=== PATIENT | female | born 1995 | race Caucasian/White ===

== ENCOUNTER 2017-01-19 16:47 | Emergency (ER) | payer OTHER ==
[~2017-01-19 16:47] MED LIST: CIPR500T89 PO; FLAG500T PO; IBUP80TA PO; KEFL500C7 PO; PERC5TAB6 PO
[2017-01-19] MEDS ORDERED: METHOCARBAMOL 500 MG TAB As Ordered ONE (17:48)
[2017-01-19] MEDS ORDERED: ACETAMINOPHEN 325 MG TAB As Ordered ONE (17:49)
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
--- NOTE | 2017-01-19 18:36 | REP ---
Clinical: Deformity and swelling . Technique: AP, lateral, bilateral oblique views of the left elbow. Findings: No acute fracture or dislocation is appreciated. Joint spaces and surrounding soft tissues appear normal. Lateral view demonstrates normal positioning to the anterior and posterior fat pads without evidence for effusion/hemarthrosis. No subcutaneous emphysema or foreign body identified. Impression: Normal left elbow radiographs. Signed by Jonah Pierre MD 01/19/2017 06:28 P
--- NOTE | 2017-01-19 18:37 | REP ---
Clinical: Deformity and swelling . Technique: AP, lateral, bilateral oblique, and coned-down views. Findings: Alignment and lordosis is maintained. The vertebral bodies including transverse process and spinous processes are intact and normal. There is no evidence for acute fracture / compression injury or subluxation. No evidence for spondylolysis or spondylolisthesis. No significant degenerative change is noted. Impression: Normal lumbosacral spine radiograph series. Signed by Jonah Pierre MD 01/19/2017 06:28 P
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
--- NOTE | 2017-01-19 19:14 | EDDOCDS ---
Physician Documentation [facility] Name: Sharla Gonzales Age: 21 yrs Sex: Female : 1995 Arrival Date: 01/19/2017 Time: 16:47 Bed I6 / 28 Private MD: Disposition: 01/19/17 19:03 Discharged to Home/Self Care. Impression: Cervicalgia, Contusion of left elbow, Low back pain. - Condition is Stable. - Discharge Instructions: Back Pain, Adult, Elbow Contusion, Soft Tissue Injury of the Neck. - Prescriptions for Ibuprofen 600 mg Oral Tablet - take 1 tablet by ORAL route every 6 hours As needed take with food; 30 tablet. Robaxin 500 mg Oral Tablet - take 2 tablet by ORAL route every 6 hours As needed; 40 tablet. - Medication Reconciliation, Local Pharmacy Hours form. - Follow up: Private Physician; When: Tomorrow; Reason: Recheck today's complaints, Continuance of care. - Problem is new. - Symptoms have improved. Historical: - Allergies: No known drug Allergies; - Home Meds: 1. none - PMHx: Kidney stones; - PSHx: Lithotripsy; - Immunization history: Last tetanus immunization: unknown. - Social history: Smoking status: Patient states was never smoker of tobacco. No barriers to communication noted, The patient speaks fluent Polish. - Family history: Not pertinent. - Last oral intake was: 1615 today. - : The pt / caregiver states he / she is not on anticoagulants. Home medication list is obtained from the patient. - Exposure Risk Screening:: None identified. Vital Signs: 01/19 16:50 BP 148 / 83; Pulse 96; Resp 16; Temp 96.9; Pulse Ox 100% on R/A; Weight 66.68 kg / 147 lr2 lbs (R); Height 5 ft. 4 in. (162.56 cm) (R); Pain 2/10; 19:13 BP 128 / 78; Pulse 78; Resp 18; Temp 98(T); Pulse Ox 99% on R/A; Pain 0/10; rs3 16:50 Body Mass Index 25.23 (66.68 kg, 162.56 cm) lr2 Trauma Score (Adult): 17:04 Eye Response: spontaneous(1); Verbal Response: oriented(1); Motor Response: obeys ttb commands(2); Systolic BP: > 89 mm Hg(4); Respiratory Rate: 10 to 29 per min(4); Leeds Score: 15; Trauma Score: 12 MDM: 17:32 [facility] Payment Agreement was scanned into [employer] and attached to record. jp5 17:32 [facility] Payment Agreement was scanned into [employer] and attached to record. jp5 17:32 Financial registration complete. jp5 17:43 Acetaminophen Tablet 650 mg PO once ordered. ck7 17:43 Methocarbamol 1 grams PO once ordered. ck7 17:45 Spine. Lumbosacral, Complete Ordered. EDMS 17:45 Elbow, Complete Ordered. EDMS 17:45 CT Head Without Contrast Ordered. EDMS 17:45 CT Spine,Cervical W/o Contrast Ordered. EDMS 18:50 CT Head Without Contrast Reviewed. ck7 18:50 CT Spine,Cervical W/o Contrast Reviewed. ck7 18:50 Spine. Lumbosacral, Complete Reviewed. ck7 18:50 Elbow, Complete Reviewed. ck7 Administered Medications: 17:52 Drug: Acetaminophen 650 mg [acetaminophen 325 mg tablet (2 tabs)] Route: PO; dy 17:52 Drug: Methocarbamol 1 grams [methocarbamol 500 mg tablet (2 tabs)] Route: PO; dy Signatures: Dispatcher [employer] EDME Alise Gregg RN RN rs3 Rey Lopez, RPA-C RPA-Cck7 Dalia Velasquez RN RN ttJak Ramsay jp5 John Gonzalez RN The chart was reviewed and I authenticate all verbal orders and agree with the evaluation and treatment provided.Attachments: 17:32 [facility] Payment Agreement jp5 17:32 [facility] Payment Agreement jp5 MTDD
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
--- NOTE | 2017-01-21 20:14 | EDDOCDS ---
Physician Documentation [facility] Name: Sharla Gonzales Age: 21 yrs Sex: Female : 1995 Arrival Date: 01/19/2017 Time: 16:47 Bed I6 / 28 Private MD: Disposition: 01/19/17 19:03 Discharged to Home/Self Care. Impression: Cervicalgia, Contusion of left elbow, Low back pain. - Condition is Stable. - Discharge Instructions: Back Pain, Adult, Elbow Contusion, Soft Tissue Injury of the Neck. - Prescriptions for Ibuprofen 600 mg Oral Tablet - take 1 tablet by ORAL route every 6 hours As needed take with food; 30 tablet. Robaxin 500 mg Oral Tablet - take 2 tablet by ORAL route every 6 hours As needed; 40 tablet. - Medication Reconciliation, Local Pharmacy Hours form. - Follow up: Private Physician; When: Tomorrow; Reason: Recheck today's complaints, Continuance of care. - Problem is new. - Symptoms have improved. Historical: - Allergies: No known drug Allergies; - Home Meds: 1. none - PMHx: Kidney stones; - PSHx: Lithotripsy; - Immunization history: Last tetanus immunization: unknown. - Social history: Smoking status: Patient states was never smoker of tobacco. No barriers to communication noted, The patient speaks fluent Yakut. - Family history: Not pertinent. - Last oral intake was: 1615 today. - : The pt / caregiver states he / she is not on anticoagulants. Home medication list is obtained from the patient. - Exposure Risk Screening:: None identified. Vital Signs: 01/19 16:50 BP 148 / 83; Pulse 96; Resp 16; Temp 96.9; Pulse Ox 100% on R/A; Weight 66.68 kg / 147 lr2 lbs (R); Height 5 ft. 4 in. (162.56 cm) (R); Pain 2/10; 19:13 BP 128 / 78; Pulse 78; Resp 18; Temp 98(T); Pulse Ox 99% on R/A; Pain 0/10; rs3 16:50 Body Mass Index 25.23 (66.68 kg, 162.56 cm) lr2 Trauma Score (Adult): 17:04 Eye Response: spontaneous(1); Verbal Response: oriented(1); Motor Response: obeys ttb commands(2); Systolic BP: > 89 mm Hg(4); Respiratory Rate: 10 to 29 per min(4); Elba Score: 15; Trauma Score: 12 MDM: [facility] Payment Agreement was scanned into [employer] and attached to record. : [facility] Payment Agreement was scanned into [employer] and attached to record. 04 09: Financial registration complete. jp5 17:43 Acetaminophen Tablet 650 mg PO once ordered. ck7 17:43 Methocarbamol 1 grams PO once ordered. ck7 17:45 Spine. Lumbosacral, Complete Ordered. EDMS 17:45 Elbow, Complete Ordered. EDMS 17:45 CT Head Without Contrast Ordered. EDMS 17:45 CT Spine,Cervical W/o Contrast Ordered. EDMS 18:50 CT Head Without Contrast Reviewed. ck7 18:50 CT Spine,Cervical W/o Contrast Reviewed. ck7 18:50 Spine. Lumbosacral, Complete Reviewed. ck7 18:50 Elbow, Complete Reviewed. 01/20 09:34 T-Sheet-- Draft Copy was scanned into [employer] and attached to record. gb Administered Medications: 01/19 17:52 Drug: Acetaminophen 650 mg [acetaminophen 325 mg tablet (2 tabs)] Route: PO; dy 17:52 Drug: Methocarbamol 1 grams [methocarbamol 500 mg tablet (2 tabs)] Route: PO; dy Signatures: Dispatcher [employer] EDGA Cate Ching, Reg Reg gb Alise Gregg RN RN rs3 Rey Lopez, RPA-C RPA-Cck7 Dalia Velasquez RN RN ttb Price, Jennalee jp5 John Gonzalez RN The chart was reviewed and I authenticate all verbal orders and agree with the evaluation and treatment provided.Attachments: [facility] Payment Agreement [facility] Payment Agreement 01/20 09:34 T-Sheet-- Draft Copy gb Chart Complete MTDD
--- NOTE | 2017-01-21 20:14 | EDDOCDS ---
Physician Documentation [facility] Name: Sharla Gonzales Age: 21 yrs Sex: Female : 1995 Arrival Date: 01/19/2017 Time: 16:47 Bed I6 / 28 Private MD: Disposition: 01/19/17 19:03 Discharged to Home/Self Care. Impression: Cervicalgia, Contusion of left elbow, Low back pain. - Condition is Stable. - Discharge Instructions: Back Pain, Adult, Elbow Contusion, Soft Tissue Injury of the Neck. - Prescriptions for Ibuprofen 600 mg Oral Tablet - take 1 tablet by ORAL route every 6 hours As needed take with food; 30 tablet. Robaxin 500 mg Oral Tablet - take 2 tablet by ORAL route every 6 hours As needed; 40 tablet. - Medication Reconciliation, Local Pharmacy Hours form. - Follow up: Private Physician; When: Tomorrow; Reason: Recheck today's complaints, Continuance of care. - Problem is new. - Symptoms have improved. Historical: - Allergies: No known drug Allergies; - Home Meds: 1. none - PMHx: Kidney stones; - PSHx: Lithotripsy; - Immunization history: Last tetanus immunization: unknown. - Social history: Smoking status: Patient states was never smoker of tobacco. No barriers to communication noted, The patient speaks fluent Turkish. - Family history: Not pertinent. - Last oral intake was: 1615 today. - : The pt / caregiver states he / she is not on anticoagulants. Home medication list is obtained from the patient. - Exposure Risk Screening:: None identified. Vital Signs: 01/19 16:50 BP 148 / 83; Pulse 96; Resp 16; Temp 96.9; Pulse Ox 100% on R/A; Weight 66.68 kg / 147 lr2 lbs (R); Height 5 ft. 4 in. (162.56 cm) (R); Pain 2/10; 19:13 BP 128 / 78; Pulse 78; Resp 18; Temp 98(T); Pulse Ox 99% on R/A; Pain 0/10; rs3 16:50 Body Mass Index 25.23 (66.68 kg, 162.56 cm) lr2 Trauma Score (Adult): 17:04 Eye Response: spontaneous(1); Verbal Response: oriented(1); Motor Response: obeys ttb commands(2); Systolic BP: > 89 mm Hg(4); Respiratory Rate: 10 to 29 per min(4); Hanson Score: 15; Trauma Score: 12 MDM: [facility] Payment Agreement was scanned into [employer] and attached to record. : [facility] Payment Agreement was scanned into [employer] and attached to record. 04 09: Financial registration complete. jp5 17:43 Acetaminophen Tablet 650 mg PO once ordered. ck7 17:43 Methocarbamol 1 grams PO once ordered. ck7 17:45 Spine. Lumbosacral, Complete Ordered. EDMS 17:45 Elbow, Complete Ordered. EDMS 17:45 CT Head Without Contrast Ordered. EDMS 17:45 CT Spine,Cervical W/o Contrast Ordered. EDMS 18:50 CT Head Without Contrast Reviewed. ck7 18:50 CT Spine,Cervical W/o Contrast Reviewed. ck7 18:50 Spine. Lumbosacral, Complete Reviewed. ck7 18:50 Elbow, Complete Reviewed. 01/20 09:34 T-Sheet-- Draft Copy was scanned into [employer] and attached to record. gb Administered Medications: 01/19 17:52 Drug: Acetaminophen 650 mg [acetaminophen 325 mg tablet (2 tabs)] Route: PO; dy 17:52 Drug: Methocarbamol 1 grams [methocarbamol 500 mg tablet (2 tabs)] Route: PO; dy Signatures: Dispatcher [employer] EDID Cate Ching, Reg Reg gb Alise Gregg RN RN rs3 Rey Lopez, RPA-C RPA-Cck7 Dalia Velasquez RN RN ttb Price, Jennalee jp5 John Gonzalez RN The chart was reviewed and I authenticate all verbal orders and agree with the evaluation and treatment provided.Attachments: [facility] Payment Agreement [facility] Payment Agreement 01/20 09:34 T-Sheet-- Draft Copy gb Chart Complete MTDD
== END 2017-01-19 19:13 | disposition home or self-care (01) ==
LOC: M ED 16:47
DX: S50.02XA Contusion of left elbow, initial encounter (principal); V47.6XXA Car passenger injured in collision with fixed or stationary object in traffic accident, initial encounter; Y92.410 Unspecified street and highway as the place of occurrence of the external cause; Y93.89 Activity, other specified; Y99.8 Other external cause status; M54.2 Cervicalgia; M54.5 Low back pain; Z87.442 Personal history of urinary calculi

== ENCOUNTER → 2017-03-03 | Outpatient (REF) | payer OTHER | LOC: M SFHCLERA 13:21 | PROVIDERS: ATTEND Family Medicine | DX: Z53.8 Procedure and treatment not carried out for other reasons (principal); R93.429 Abnormal radiologic findings on diagnostic imaging of unspecified kidney ==

== ENCOUNTER → 2017-03-04 | Outpatient (CLI) | payer OTHER ==
--- NOTE | 2017-03-04 16:16 | REP ---
RENAL AND BLADDER ULTRASOUND: Real-time sonographic evaluation of the kidneys performed. The kidneys are normal in size, right kidney measuring 10.8 x 5.2 x 4.5 cm and left kidney 10.6 x 4.9 x 4.8 cm. There is no hydronephrosis bilaterally. 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 There appear to be a few subcentimeter calculi in the right renal collecting system. At least one stone is seen in the mid left renal collecting system. No renal mass is seen. The urinary bladder measures 5.9 x 7.4 x 2.6 cm for a total volume of 74 mL. There is mild postvoid residual in the urinary bladder of 20 mL. Focal echogenic area in the dependent portion of the bladder measures 4 x 3 x 6 mm, possibly representing a polyp or bladder calculus. There are bilateral ureteral jets in the urinary bladder with Doppler color evaluation. IMPRESSION: No hydronephrosis. Bilateral renal calculi. 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 Possible subcentimeter polyp or calculus in the dependent portion of the bladder. Signed by Oumar Yanes MD 03/04/2017 04:25 P
== END ==
LOC: M LRY 08:38
DX: N20.0 Calculus of kidney (principal)

== ENCOUNTER → 2017-03-04 | Outpatient (REF) | payer OTHER ==
[2017-03-04 12:18] LABS: ANION GAP 5 MEQ/L (8-16); BLOOD UREA NITROGEN 13 MG/DL (7-18); CALCIUM LEVEL 9.3 MG/DL (8.5-10.1); CARBON DIOXIDE LEVEL 29 MEQ/L (21-32); CHLORIDE LEVEL 105 MEQ/L (98-107); CREATININE FOR GFR 0.66 MG/DL (0.55-1.02); GLOMERULAR FILTRATION RATE > 60.0 (>60); GLUCOSE, FASTING 89 MG/DL (70-105); POTASSIUM SERUM 4.5 MEQ/L (3.5-5.1); SODIUM LEVEL 139 MEQ/L (136-145)
== END ==
LOC: M SFHCLERA 08:42
PROVIDERS: ATTEND Family Medicine
DX: R93.429 Abnormal radiologic findings on diagnostic imaging of unspecified kidney (principal)